=== PATIENT | female | born 1980 | race Caucasian/White ===

== ENCOUNTER 2018-10-12 10:09 | Emergency (ER) | payer MEDICAID | END 2018-10-12 10:59 | disposition home or self-care (01) | LOC: FTE 10:59 | DX: R19.7 Diarrhea, unspecified (principal) | CPT/HCPCS: 99283 ==

== ENCOUNTER 2019-01-10 17:36 | Emergency (ER) | payer MEDICAID ==
[2019-01-10 19:26] LABS: ADD UMIC YES; UR ASCORBIC ACID NEGATIVE (NEGATIVE); UR BILIRUBIN (Dip) NEGATIVE (NEGATIVE); UR BLOOD (Dip) 1+ mg/dL (NEGATIVE); UR CLARITY CLEAR (CLEAR); UR COLOR YELLOW (YELLOW); UR GLUCOSE (Dip) NEGATIVE (NEGATIVE); UR KETONES (Dip) 1+ mg/dL (NEGATIVE); UR LEUKOCYTE ESTERASE (Dip) NEGATIVE Leu/ul (NEGATIVE); UR MUCUS FEW /HPF (NONE SEEN); UR NITRITE (Dip) NEGATIVE (NEGATIVE); UR RBC 2 /HPF (0-5); UR SPECIFIC GRAVITY (Dip) 1.026 (1.003-1.030); UR TOTAL PROTEIN (Dip) NEGATIVE (NEGATIVE); UR UROBILINOGEN (Dip) 2+ mg/dL (NEGATIVE); UR WBC 1 /HPF (0-5)
[2019-01-10] MEDS: HYDROCODONE/APAP (5/325) TAB PO (19:40)
[2019-01-10] MEDS: KETOROLAC 30 MG INJ IM (19:41)
== END 2019-01-10 20:39 | disposition home or self-care (01) ==
LOC: FTE 17:36
DX: R10.2 Pelvic and perineal pain (principal); I10 Essential (primary) hypertension; Z30.431 Encounter for routine checking of intrauterine contraceptive device
CPT/HCPCS: 76856; 81001; 81025; 87591; 96372; 99285-25